=== PATIENT | female | born 1990 | race Caucasian/White ===

== ENCOUNTER 2017-10-14 19:28 | Emergency (ER) | payer OTHER ==
[~2017-10-14] VITALS: Ht 167.6 cm; Wt 69.7 kg
[~2017-10-14 19:28] MED LIST: IUD; PROMETHAZINE HC25 M1 PO; TRAMADOL HCL50 MG PO; ZOFRAN ODT4 MG PO; ZOFRAN4 MG PO; ZOLOFT50 MG PO
[2017-10-14 20:08] LABS: HEMATOCRIT 40.8 % (36.0-46.0); HEMOGLOBIN 14.1 G/DL (11.9-15.5); MCHC 34.6 G/DL (30.0-36.0); MCV 92.5 FL (83-99); PLATELET COUNT 310 K/uL (156-360); RBC DIS.WIDTH-CV 12.5 % (11.8-14.6); RED BLOOD COUNT 4.41 M/uL (3.80-5.20); WHITE BLOOD COUNT 12.6 K/uL (4.1-10.2)
[2017-10-14 20:15] LABS: ALBUMIN 4.8 g/dL (3.2-4.8); CHLORIDE 103 mEq/L (99-109); SODIUM 140 mEq/L (136-147)
[2017-10-14 20:18] LABS: GLUCOSE 131 mg/dL (70-99); TOTAL PROTEIN 7.9 g/dL (6.4-8.3)
[2017-10-14 20:20] LABS: TOTAL BILIRUBIN 0.9 mg/dL (0.0-1.0)
[2017-10-14 20:21] LABS: ALKALINE PHOSPHATASE 59 IU/L (3-129); CREATININE 0.7 mg/dL (0.6-1.3); GFR ESTIMATE (CALCULATED) > 59 mL/min/
[2017-10-14 20:22] LABS: UREA NITROGEN (BUN) 10 mg/dL (9-23)
[2017-10-14 20:23] LABS: AST (GOT) 24 IU/L (2-34)
[2017-10-14 20:24] LABS: ALT (GPT) 20 IU/L (3-49)
[2017-10-14 20:32] LABS: QUANTITATIVE HCG < 4.0 MIU/ML
[2017-10-14 20:56] LABS: APPEARANCE CLEAR ((CLEAR)); BILIRUBIN NEGATIVE; BLOOD NEGATIVE; COLOR YELLOW ((YELLOW)); GLUCOSE (STRIP) NEGATIVE; KETONES 80; LEUKOCYTES NEGATIVE; NITRITE NEGATIVE; PROTEIN (STRIP) 30; SPECIFIC GRAVITY 1.028 (1.000-1.030); UCUL ADDED? NO; UROBILINOGEN 0.2 MG/DL (0.2-1.0)
[2017-10-14] MEDS ORDERED: ZOFRAN ODT4 MG PO (23:21)
[2017-10-15 00:03] VITALS: BP 130/65
== END 2017-10-15 00:04 | disposition home or self-care (01) ==
LOC: EME 19:28
DX: A08.4 Viral intestinal infection, unspecified (principal); Z88.0 Allergy status to penicillin
CPT/HCPCS: 80053; 81003; 84702; 85027; 99281; 99284; J2405; J7030

== ENCOUNTER → 2017-11-14 | Outpatient (CLI) | payer OTHER ==
[~2017-11-14] VITALS: Ht 167.6 cm; Wt 72.6 kg
[~2017-11-14] MED LIST changes: +BENTYL10 MG PO; +CLARITIN10 MG PO; +MIRENA1 EACH IY; +PEPTO BISMOL240 ML PO
== END | disposition home or self-care (01) ==
LOC: AMB 11:09
DX: R10.84 Generalized abdominal pain (principal); R19.7 Diarrhea, unspecified; R11.0 Nausea; F90.1 Attention-deficit hyperactivity disorder, predominantly hyperactive type; F41.9 Anxiety disorder, unspecified; F32.9 Major depressive disorder, single episode, unspecified; F12.90 Cannabis use, unspecified, uncomplicated; K63.5 Polyp of colon
CPT/HCPCS: 88305; J2250; J3010

== ENCOUNTER 2018-01-21 21:17 | Emergency (ER) | payer OTHER ==
[~2018-01-21] VITALS: Ht 167.6 cm; Wt 73.0 kg
[2018-01-21] MEDS ORDERED: MEDROL DOSEPAK4 MG PO (21:35)
[2018-01-21 21:51] VITALS: BP 131/73
[2018-01-23] MEDS ORDERED: FLONASE ALLERG9.9 ML BOTH NARES (15:36)
[2018-01-23] MEDS ORDERED: BENADRYL25 MG PO (15:38)
== END 2018-01-21 21:59 | disposition home or self-care (01) ==
LOC: EME 21:17
DX: R59.0 Localized enlarged lymph nodes (principal); H69.81 Other specified disorders of Eustachian tube, right ear; J30.9 Allergic rhinitis, unspecified; K21.9 Gastro-esophageal reflux disease without esophagitis; G43.909 Migraine, unspecified, not intractable, without status migrainosus; F41.9 Anxiety disorder, unspecified; F32.9 Major depressive disorder, single episode, unspecified; F41.0 Panic disorder [episodic paroxysmal anxiety]; Z87.891 Personal history of nicotine dependence; Z97.5 Presence of (intrauterine) contraceptive device; Z87.19 Personal history of other diseases of the digestive system; Z88.0 Allergy status to penicillin
CPT/HCPCS: 99281; 99283

== ENCOUNTER 2018-01-30 08:57 | Day surgery (SDC) | payer OTHER ==
[~2018-01-30] VITALS: Ht 167.6 cm; Wt 73.5 kg
[~2018-01-30 08:57] MED LIST changes: +BENADRYL25 MG PO; +FLONASE ALLERG9.9 ML BOTH NARES; +MEDROL DOSEPAK4 MG PO
[2018-01-30 09:26] VITALS: BP 127/66
[2018-01-30] MEDS ORDERED: ENDOCET 5-3251 EACH PO (09:31)
[2018-01-30] MEDS ORDERED: IBUPROFEN800 MG PO (09:31)
[2018-01-30 12:45] VITALS: BP 121/67
[2018-01-30 13:45] VITALS: BP 120/60
== END 2018-01-30 14:10 | disposition home or self-care (01) ==
LOC: SDC 08:57
PROC: 0UBC7ZX Excision of Cervix, Via Natural or Artificial Opening, Diagnostic (ICD-10-PCS; principal; 2018-01-30)
DX: D06.9 Carcinoma in situ of cervix, unspecified (principal); Z88.0 Allergy status to penicillin
CPT/HCPCS: 88307; 88342 TC; J0131; J1100; J2250; J2405; J3010